=== PATIENT | female | born 1995 | race Two or more races ===

== ENCOUNTER 2022-09-12 01:26 | Emergency (ER) | payer OTHER ==
[~2022-09-12] VITALS: Ht 162.6 cm; Wt 68.0 kg
[2022-09-12] MEDS ORDERED: VITATRUE COMBO1 EACH PO (05:05)
== END 2022-09-12 05:14 ==
LOC: ER 01:26
DX: O20.9 Hemorrhage in early pregnancy, unspecified (principal); Z3A.09 9 weeks gestation of pregnancy; Z91.018 Allergy to other foods

== ENCOUNTER 2023-03-10 00:51 | Outpatient (CLI) | payer OTHER ==
[~2023-03-10 00:51] MED LIST: VITATRUE COMBO1 EACH PO
== END 2023-03-10 10:59 | disposition home or self-care (01) ==
LOC: OBS/DEL 00:51
PROVIDERS: ATTEND Obstetrics & Gynecology
DX: O26.893 Other specified pregnancy related conditions, third trimester (principal); R51.9 Headache, unspecified; Z3A.34 34 weeks gestation of pregnancy; Z91.018 Allergy to other foods

== ENCOUNTER 2023-04-13 04:49 | Inpatient (IN) | payer OTHER ==
[~2023-04-13] VITALS: Ht 162.6 cm; Wt 78.5 kg
[2023-04-13] MEDS ORDERED: PEPCID AC20 MG PO (05:01)
== END 2023-04-15 11:01 | disposition home or self-care (01) | DRG 807 ==
LOC: LDR 04:49 → OB/GYN 14:17
PROVIDERS: ADMIT Obstetrics & Gynecology; ATTEND Obstetrics & Gynecology
PROC: 10E0XZZ Delivery of Products of Conception, External Approach (ICD-10-PCS; principal; 2023-04-13)
PROC: 0KQM0ZZ Repair Perineum Muscle, Open Approach (ICD-10-PCS; 2023-04-13)
PROC: 4A1HXCZ Monitoring of Products of Conception, Cardiac Rate, External Approach (ICD-10-PCS; 2023-04-13)
DX: O70.1 Second degree perineal laceration during delivery (principal); Z37.0 Single live birth; Z3A.39 39 weeks gestation of pregnancy; Z20.822 Contact with and (suspected) exposure to COVID-19